=== PATIENT | male | born 1955 | race Caucasian/White ===

== ENCOUNTER 2020-01-26 03:04 | Inpatient (IN) | payer MEDICARE ==
[2020-01-26] VITALS (25 sets, daily range): BP systolic 56–139; BP diastolic 25–67
[~2020-01-26] VITALS: Ht 177.8 cm; Wt 114.0 kg
[2020-01-26] MEDS ORDERED: NORepinephrine 8mg/ 250ml NS 250 ML IV ONE (04:26)
[2020-01-26] MEDS ORDERED: midazolam 100mg in NS 100ml 100 ML IV PRN (04:45)
[2020-01-26] MEDS ORDERED: proCHLORperazine 10 MG/2 ml inj IV PRN (04:45)
[2020-01-26] MEDS ORDERED: potassium Cl 20mEq/100mL bag 100 ML IV PRN (04:45)
[2020-01-26] MEDS ORDERED: albuterol 2.5 MG/3 ML nebule NEB PRN (04:45)
[2020-01-26] MEDS ORDERED: acetaminophen 325mg tablet PO PRN ×2 (04:45)
[2020-01-26] MEDS ORDERED: acetaminophen 650mg rectal suppository RC PRN (04:45)
[2020-01-26] MEDS: normal saline 1000ml 1,000 ML IV SCH ×2 (04:45→20:41)
[2020-01-26] MEDS ORDERED: FENTANYL-0.9 % NACL/PF 100 ML IV PRN (04:45)
[2020-01-26] MEDS ORDERED: ondansetron/PF 4mg/2ml inj IV PRN (04:45)
[2020-01-26] MEDS ORDERED: DOPamine 400mg/D5W 250ml 250 ML IV ONE (05:42)
[2020-01-26] MEDS: NORepinephrine 8mg/ 250ml NS 250 ML IV SCH ×12 (05:45→23:08)
[2020-01-26] MEDS ORDERED: glucagon, human recombinant 1mg kit SUBCUT PRN ×2 (05:45→13:05)
[2020-01-26] MEDS ORDERED: dextrose ORAL solution 15 GM/59 ML bottle PO PRN ×4 (05:45→13:05)
[2020-01-26] MEDS: DOPamine 400mg/D5W 250ml 250 ML IV SCH ×2 (05:45→18:15)
[2020-01-26] MEDS ORDERED: dextrose 50%-water 50ml dispensing syringe IV PRN ×4 (05:45→13:05)
[2020-01-26] MEDS ORDERED: [UNRECOGNIZED DRUG - REMARK] IV ONE (06:00)
--- NOTE | 2020-01-26 06:25 | NUR ---
0545: patient arrived with EMS flight crew, attached to vent, bilateral breath sounds, ETT 7.5 @ 24cm, Fio2 100%, right IN central line, Levophed at 0.5mcg/kg/min, Dopamine at 10mcg/kg/min, labs sent, bilateral breath sounds, pt in sinus rhythm, awaiting bicarb and insulin drip. report given to Tila BERG
[2020-01-26 06:28] LABS: BASOPHILS % (AUTO) 0.1 % (0-1); EOSINOPHILS # (AUTO) 0.2 X10'3 (0-0.9); EOSINOPHILS % (AUTO) 1.9 % (0-6); HEMATOCRIT 35.5 % (42.0-52.0); HEMOGLOBIN 11.8 g/dl (14.0-17.9); LYMPHOCYTES # (AUTO) 1.1 X10'3 (1.1-4.8); LYMPHOCYTES % (AUTO) 13.9 % (21-51); MEAN CORPUSCULAR HEMOGLOBIN 27.7 PG (27.0-31.0); MEAN CORPUSCULAR HGB CONC 33.2 g/dL (33.0-36.5); MEAN CORPUSCULAR VOLUME 83.4 FL (78-98); MEAN PLATELET VOLUME 8.9 FL (7.4-10.4); MONOCYTES % (AUTO) 12.1 % (2-12); NEUTROPHILS # (AUTO) 5.7 X10'3 (1.8-7.7); PLATELET COUNT 131 X10'3 (140-440); RED BLOOD COUNT 4.25 X10'6 (4.70-6.10); RED CELL DISTRIBUTION WIDTH 15.2 % (11.5-14.5)
[2020-01-26 06:39] LABS: PARTIAL THROMBOPLASTIN TIME 32 SECONDS (22-32)
[2020-01-26 06:43] LABS: ALANINE AMINOTRANSFERASE 12 U/L (12-78); ALBUMIN/GLOBULIN RATIO 0.6 (1.1-1.5); ALKALINE PHOSPHATASE 108 IU/L (46-116); ANION GAP 23 (8-16); ASPARTATE AMINO TRANSFERASE 29 U/L (10-37); BILIRUBIN,TOTAL 0.7 MG/DL (0.1-1.0); BLOOD UREA NITROGEN 79 MG/DL (7-18); BUN/CREATININE RATIO 17.9 (5.4-32.0); CALCIUM 7.4 MG/DL (8.5-10.1); CHLORIDE 107 MMOL/L (99-107); CREATININE 4.41 MG/DL (0.60-1.10); GLUCOSE 402 MG/DL (70-104); POTASSIUM 3.3 MMOL/L (3.5-5.1); SODIUM 146 MMOL/L (135-145); TOTAL PROTEIN 5.3 G/DL (6.4-8.2); eGFR 14 ML/MIN
[2020-01-26 06:46] LABS: LACTIC SEPSIS 1.4 MMOL/L (0.4-2.0)
[2020-01-26] MEDS: ipratropium/albuterol 3ml nebule NEB SCH ×5 (06:49→23:07)
[2020-01-26 06:53] LABS: CREATINE KINASE 520 U/L (39-308); ETHANOL < 0.010 GM/DL (0.0-0.010); PHOSPHORUS 2.8 MG/DL (2.3-4.5)
[2020-01-26] MEDS: Insulin Reg/NS 100units/100mL 100 ML IV SCH ×4 (07:08→17:11)
[2020-01-26 07:19] LABS: TOTAL CELLS COUNTED 100
[2020-01-26 07:20] LABS: PLATELET ESTIMATE DECREASED
[2020-01-26] MEDS ORDERED: vancomycin/NS 1 GM ADD-VANTAGE 250 ML X 1 DOSE IV PRN (07:20)
[2020-01-26 07:21] LABS: NEUTROPHILS % (MANUAL) 41 % (42-75)
[2020-01-26 07:22] LABS: LYMPHOCYTES % (MANUAL) 11 % (21-51)
[2020-01-26 07:33] LABS: CLARITY,URINE SLIGHTLY CLOUDY (Clear); COLOR,URINE YELLOW (Yellow); GLUCOSE, URINE >=1000 mg/dl (Neg); KETONES,URINE 15 mg/dl (Neg); LEUKOCYTE ESTERASE ,URINE NEGATIVE (Neg); NITRITES, URINE NEGATIVE (Neg); OCCULT BLOOD,URINE MODERATE (Neg); PH,URINE 5.5 (4.8-8.0); PROTEIN,URINE 100 mg/dl (Neg); UROBILINOGEN,URINE 0.2 E.U/dL (0.2-1.0)
[2020-01-26 07:36] LABS: ABG BASE EXCESS -15.3 mmol/L (-2.0-2.0); ABG HCO3 12.2 mmol/L (22.0-26.0); ABG OXYGEN SATURATION 97.9 % (94-97); ABG PCO2 (T) 34.5 mmHg (35.0-48.0); ABG PO2 (T) 114.1 mmHg (75.0-100.0); FCOHb 0.3 % (0.0-3.9); FMetHb 0.3 % (0.0-1.5); FO2Hb 97.3 % (94-97); RESPIRATORY RATE 24 b/min; TIDAL VOLUME 400 mL; TOTAL HEMOGLOBIN 13.3 G/dl (14.0-18.0)
[2020-01-26 07:36] LABS: UA COLLECTION TYPE NON-SPECIFIED
[2020-01-26 07:37] LABS: AMORPHOUS URATES 1+; BACTERIA,URINE NONE SEEN /HPF (Neg); MUCUS STRANDS FEW /LPF (Neg); RBC,URINE 0-2 /HPF (0-2); SQUAMOUS EPITHELIAL CELL,UR FEW /LPF (FEW); WBC,URINE 0-4 /HPF (0-4)
[2020-01-26] MEDS: potassium Cl 20mEq/100mL bag 100 ML IV PRN ×3 (07:41→17:17)
[2020-01-26] MEDS ORDERED: pantoprazole 40 MG vial IV SCH (08:00)
[2020-01-26] MEDS: docusate sodium 100mg/10ml UD cup PO SCH ×2 (08:29→20:00)
[2020-01-26] MEDS: heparin, porcine 5000 units/ml vial SQ SCH ×2 (08:31→20:52)
[2020-01-26] MEDS: sodium bicarbonate (8.4%) inj. 100 MEQ in dextrose 5%-water 1,000 ML IV SCH ×2 (08:38→11:49)
[2020-01-26] MEDS: piperacillin/tazo 3.375gm/50ml 50 ML IV SCH ×2 (08:38→20:51)
--- NOTE | 2020-01-26 10:44 | NUR ---
PEER DR WEISS FOLLOW INSULIN GTT PROTOCOL. D/C CVP FOR NOW
[2020-01-26] MEDS ORDERED: vasopressin inj. 40 UNIT in normal saline 50ml IV soln 38 ML IV SCH (10:45)
[2020-01-26 11:18] LABS: ALBUMIN 1.8 G/DL (3.4-5.0); ANION GAP 20 (8-16); BLOOD UREA NITROGEN 78 MG/DL (7-18); BUN/CREATININE RATIO 16.6 (5.4-32.0); CALCIUM 7.1 MG/DL (8.5-10.1); CHLORIDE 106 MMOL/L (99-107); GLUCOSE 418 MG/DL (70-104); PHOSPHORUS 2.1 MG/DL (2.3-4.5); POTASSIUM 3.1 MMOL/L (3.5-5.1); SODIUM 144 MMOL/L (135-145); eGFR 13 ML/MIN
--- NOTE | 2020-01-26 11:25 | NUR ---
DM Consult: Pt intubated admit w/ acute respiratory failure, DKA, ROLAND, sepsis, R groin open site and yeast in groin per MD. A1C 14.0. Hx HTN per EMR though physical assessment and hx pending at this time; unsure if hx DM vs new DX. Pt found down at home during welfare check by family w/ last contact 01/21 per EMR. Beers around house w/ ammonia 73 at this time though etoh WNL on admit. CK 520 at this time. Receiving insulin drip w/ Glu 395 and electrolyte replacement per protocol. EN recs below in case prolonged intubation. Will continue to monitor. Rec: 1. IF TF; Vital HP at 100ml/hr goal 2. IF TF; 200ml Q4 water flushes 3. IF TF; PALB Q /; daily wts 4. routine bowel care 5. upon extubation; advance diet as medically indicated to carb controlled/heart healthy 6. DM ed once stable prior to discharge; A1C 14.0 Addendum: 01/26/20 at [address] Amended: Links added.
[2020-01-26] MEDS ORDERED: sodium bicarbonate (8.4%) 1 mEq/ml syringe ONE ×2 (11:44→11:48)
[2020-01-26 11:55] LABS: ABG BASE EXCESS -2.1 mmol/L (-2.0-2.0); ABG HCO3 24.2 mmol/L (22.0-26.0); ABG OXYGEN SATURATION 89.3 % (94-97); ABG PCO2 (T) 48.7 mmHg (35.0-48.0); ABG PO2 (T) 52.9 mmHg (75.0-100.0); FCOHb 0.2 % (0.0-3.9); FMetHb 0.1 % (0.0-1.5); RESPIRATORY RATE 24 b/min; TIDAL VOLUME 400 mL; TOTAL HEMOGLOBIN 10.8 G/dl (14.0-18.0)
[2020-01-26] MEDS ORDERED: magnesium 2GM in 50ml NS 50 ML IV ONE (11:55)
[2020-01-26] MEDS ORDERED: insulin Lispro (HumaLOG) vial - multi-dose SQ SCH (13:05)
[2020-01-26] MEDS ORDERED: MESSAGE TO PHARMACY PO ONE (13:05)
[2020-01-26 13:56] LABS: ABG BASE EXCESS -6.4 mmol/L (-2.0-2.0); ABG HCO3 18.7 mmol/L (22.0-26.0); ABG OXYGEN SATURATION 83.8 % (94-97); ABG PCO2 (T) 35.6 mmHg (35.0-48.0); ABG PO2 (T) 42.5 mmHg (75.0-100.0); FCOHb 0.3 % (0.0-3.9); FMetHb 0.2 % (0.0-1.5); FO2Hb 83.4 % (94-97); PEEP 10 cm H2O; RESPIRATORY RATE 24 b/min; TIDAL VOLUME 400 mL; TOTAL HEMOGLOBIN 10.7 G/dl (14.0-18.0)
--- NOTE | 2020-01-26 14:00 | NUR ---
at 1345 bagged pt on 100% with ambu bag 02 sats in low 80,s for 15 min and brought sats up to 88% and put pt back on vent Addendum: 01/26/20 at 1736 by Ana Lilia James RT Amended: Links added.
--- NOTE | 2020-01-26 14:11 | NUR ---
DR WEISS AT BED SIDE . ARE LINE PLACED IN THE LEFT GROIN. BLOOD PRESSURE UNSTABLE DR WEISS IS AWARE . DR WEISS UPDATED FAMILY ON PATIENTS UNSTABLE STATUS. DR OCHOA WAS ALSO CONSULTED REGARDING THE ABCESS ON THE LEFT SIDE GROIN . DRESSING APPLIED ORDERED. IODOFORM PACKING APPLIED Addendum: 01/26/20 at 1414 by Tila Santiago RN ARTERIAL LINE
[2020-01-26] MEDS ORDERED: calcium chloride 100 MG/1 ML inj IV ONE (15:03)
[2020-01-26] MEDS ORDERED: METO50TA16 (16:36)
[2020-01-26] MEDS ORDERED: SERT25TA PO ×2 (16:36→18:30)
[2020-01-26] MEDS ORDERED: VALS1TAB73 PO (16:36)
[2020-01-26] MEDS ORDERED: MAGN250T2 PO ×2 (16:37→18:30)
[2020-01-26] MEDS ORDERED: POTA20TA19 PO ×2 (16:37→18:30)
[2020-01-26] MEDS ORDERED: HYDR25TA4 PO ×2 (16:38→18:30)
[2020-01-26] MEDS ORDERED: METO-395 PO ×2 (16:56→18:30)
[2020-01-26] MEDS ORDERED: VALS80TA32 PO ×2 (16:56→18:30)
[2020-01-26 17:12] LABS: ALBUMIN 1.4 G/DL (3.4-5.0); ANION GAP 20 (8-16); BLOOD UREA NITROGEN 77 MG/DL (7-18); BUN/CREATININE RATIO 14.1 (5.4-32.0); CALCIUM 7.7 MG/DL (8.5-10.1); CHLORIDE 112 MMOL/L (99-107); CREATININE 5.48 MG/DL (0.60-1.10); GLUCOSE 230 MG/DL (70-104); SODIUM 150 MMOL/L (135-145); TOTAL CARBON DIOXIDE 17.6 MMOL/L (24-32); TROPONIN I 0.46 NG/ML (0.0-0.05); eGFR 11 ML/MIN
[2020-01-26] MEDS ORDERED: Neutra Phos packet PO PRN (17:15)
[2020-01-26] MEDS ORDERED: sodium phosphate inj. 15 MMOL in dextrose 5%-water 250 ML IV PRN (17:15)
[2020-01-26] MEDS ORDERED: sodium phosphate inj. 30 MMOL in dextrose 5%-water 250 ML IV PRN (17:15)
[2020-01-26 17:16] LABS: PHOSPHORUS 0.7 MG/DL (2.3-4.5); POTASSIUM 2.9 MMOL/L (3.5-5.1)
--- NOTE | 2020-01-26 20:30 | NUR ---
Updated daughter Mara Doll on phone, patient remains on high dose vasopressors and vent at 100% FiO2, SBP remains in 60s.
[2020-01-26] MEDS ORDERED: insulin glargine (Lantus) pen - multi-dose SQ SCH (21:00)
[2020-01-26] MEDS ORDERED: midazolam 2 mg/2 ml injection IV PRN (21:10)
[2020-01-26] MEDS: fentaNYL/PF 50MCG/1 ML 2ML syringe IV PRN ×2 (21:29→22:54)
[2020-01-26 23:12] LABS: ALBUMIN 1.3 G/DL (3.4-5.0); ANION GAP 18 (8-16); BLOOD UREA NITROGEN 74 MG/DL (7-18); BUN/CREATININE RATIO 12.5 (5.4-32.0); CHLORIDE 115 MMOL/L (99-107); CREATININE 5.94 MG/DL (0.60-1.10); GLUCOSE 79 MG/DL (70-104); PHOSPHORUS 1.3 MG/DL (2.3-4.5); POTASSIUM 3.2 MMOL/L (3.5-5.1); SODIUM 150 MMOL/L (135-145); TOTAL CARBON DIOXIDE 16.9 MMOL/L (24-32); eGFR 10 ML/MIN
[2020-01-27] VITALS: BP 52/23
[2020-01-27] MEDS: potassium Cl 20mEq/100mL bag 100 ML IV PRN (00:27)
[2020-01-27 01:00] VITALS: BP 55/23
[2020-01-27] MEDS ORDERED: NORepinephrine 32 MG in Normal Saline 250ml IV soln IV SCH (01:05)
--- NOTE | 2020-01-27 01:24 | NUR ---
RN IS TO DOCUMENT YES TO ALL APPLICABLE AREAS Pronouncement of : 1. Time Physician Notified: 124 2. Date of :01/27/2020 3. Time of : 123 4. DNR/Withdraw life support documented:yes 5. Monitor strip has been placed on chart:yes 6. Assessment process is of one-minute duration and includes following criteria: a) Patient is unresponsive to all stimuli: yes b) Pupils fixed and non-reactive:yes c) Auscultation of precordium reveals absence of heart tones:yes d) Auscultation of lungs reveals absence of breath sounds:yes e) Absence of blood pressure / all vital signs:yes f) QRS complexes are not present on monitor / EKG strip:yes g) Pacer spikes without capture:yes 4. Comments: daughter Mara Doll notified at 0205, [facility] notified at 0210, reference number [id number]
[2020-01-27] MEDS ORDERED: VANCOMYCIN LEVEL IV SCH (03:00)
--- NOTE | 2020-01-27 03:13 | NUR ---
Patient picked up by jhonny Good blanket sent with patient.
[2020-01-27] MEDS ORDERED: mineral oil/petrolatum ophthal oint EACHEYE SCH (08:00)
[2020-01-28] MEDS ORDERED: lactulose 20gm/30ml cup PO PRN (04:45)
== END 2020-01-27 03:44 | disposition expired | DRG 853 ==
LOC: CICU 2S 04:27
PROVIDERS: ADMIT Internal Medicine Critical Care Medicine; ATTEND Internal Medicine Critical Care Medicine
PROC: 0VB50ZZ Excision of Scrotum, Open Approach (ICD-10-PCS; principal; 2020-01-26)
PROC: 5A1935Z Respiratory Ventilation, Less than 24 Consecutive Hours (ICD-10-PCS; 2020-01-26)
PROC: 0BH17EZ Insertion of Endotracheal Airway into Trachea, Via Natural or Artificial Opening (ICD-10-PCS; 2020-01-26)
DX: A41.9 Sepsis, unspecified organism (principal); E11.10 Type 2 diabetes mellitus with ketoacidosis without coma; R65.21 Severe sepsis with septic shock; J96.01 Acute respiratory failure with hypoxia; N17.9 Acute kidney failure, unspecified; L02.214 Cutaneous abscess of groin; F41.9 Anxiety disorder, unspecified; N49.2 Inflammatory disorders of scrotum; I10 Essential (primary) hypertension; Z79.899 Other long term (current) drug therapy; Z66 Do not resuscitate
CPT/HCPCS: 36415; 36600; 71045; 80048; 80053; 80202; 80320; 81001; 82140; 82550; 82803; 82948; 83036; 83605; 83735; 83880; 84100; 84145; 84443; 84484; 85018; 85025; 85610; 85730; 87040; 87070; 87081; 93005; 93306; 94002; 94640; 94760; 99285; C9113; G0378; J1265; J1644; J1815; J2543; J3010; J3370; J3475; J3480; J3490; J7060